=== PATIENT | male | born 1965 | race Caucasian/White ===

== ENCOUNTER 2024-07-03 12:17 | Emergency (ER) | payer MEDICAID ==
[~2024-07-03] VITALS: Ht 175.3 cm; Wt 72.0 kg
[2024-07-03 12:49] VITALS: O2SAT 95
[2024-07-03] MEDS ORDERED: KETO10TA2 MT (13:48)
[2024-07-03] MEDS: KETOROLAC 30MG/ML VIAL IM ONE (14:16)
[2024-07-03 14:50] VITALS: BP 148/95; PULSE 60; RESP 18; TEMP 36.8; O2SAT 95
== END 2024-07-03 14:55 | disposition home or self-care (01) ==
LOC: ER 12:17
DX: M54.42 Lumbago with sciatica, left side (principal); M54.41 Lumbago with sciatica, right side; G62.9 Polyneuropathy, unspecified; I10 Essential (primary) hypertension; Z98.890 Other specified postprocedural states
CPT/HCPCS: 99283; 96372; J1885